=== PATIENT | male | born 1995 | race Caucasian/White ===

== ENCOUNTER 2017-03-23 20:25 | Emergency (ER) | payer OTHER ==
[~2017-03-23] VITALS: Ht 175.3 cm; Wt 69.4 kg
[2017-03-23] MEDS ORDERED: MOTRIN800 MG PO (21:27)
[2017-03-23] MEDS ORDERED: KEFLEX500 MG PO (21:28)
[2017-03-23] MEDS ORDERED: PERCOCET 5/31 TABLET PO (21:32)
[2017-03-23 22:00] VITALS: BP 139/73
== END 2017-03-23 22:33 | disposition home or self-care (01) ==
LOC: EME 20:25 → RME 20:25
PROC: 3E0234Z Introduction of Serum, Toxoid and Vaccine into Muscle, Percutaneous Approach (ICD-10-PCS; principal; 2017-03-23)
DX: S92.532B Displaced fracture of distal phalanx of left lesser toe(s), initial encounter for open fracture (principal); W20.8XXA Other cause of strike by thrown, projected or falling object, initial encounter; Y99.0 Civilian activity done for income or pay; Z23 Encounter for immunization; F17.200 Nicotine dependence, unspecified, uncomplicated; Z88.0 Allergy status to penicillin
CPT/HCPCS: 73630; 99281; 99284; J0690